=== PATIENT | female | born 1935 | race Caucasian/White ===

== ENCOUNTER → 2016-10-11 | Outpatient (CLI) | payer MEDICARE ==
[~2016-10-11] MED LIST: AMLO5TAB2 PO; AMOX1TAB64 PO; GLYC1DRO EACHEYE; HYDR25TA6 PO; LOSA100T6 PO; POTA20TA14 PO; SILV25CR4 TP
== END | disposition home or self-care (01) ==
LOC: CFH 10:53
PROVIDERS: ATTEND Internal Medicine
DX: Z13.820 Encounter for screening for osteoporosis (principal); M81.0 Age-related osteoporosis without current pathological fracture; M89.9 Disorder of bone, unspecified; N95.1 Menopausal and female climacteric states
CPT/HCPCS: 77080

== ENCOUNTER 2018-04-24 14:07 | Inpatient (IN) | payer MEDICARE ==
[~2018-04-24] VITALS: Ht 167.6 cm; Wt 66.5 kg
[~2018-04-24 14:07] MED LIST changes: +AMLO-150 PO; -AMLO5TAB2 PO; -LOSA100T6 PO; +LOSA100T7 PO; -SILV25CR4 TP; +SILV25CR6 TP
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
[2018-04-24] MEDS ORDERED: SODIUM CHLORIDE FLUSH 10ML SYR IVF ONE (14:30)
[2018-04-24] MEDS ORDERED: HYDROmorphone 2 MG/ML, 1ML IVPush PRN ×2 (14:30→19:30)
[2018-04-24] MEDS ORDERED: ONDANSETRON 2MG/ML, 2ML IVPush ONE (14:30)
[2018-04-24] MEDS ORDERED: ONDANSETRON 2MG/ML, 2ML ONE (14:46)
[2018-04-24] MEDS ORDERED: HYDROmorphone 2 MG/ML, 1ML ONE (14:47)
[2018-04-24 15:03] LABS: BASOPHILS # (AUTO) 0.06 x10^3/uL (0-0.1); BASOPHILS % (AUTO) 1 % (0-1); EOSINOPHILS # (AUTO) 0.05 x10^3/uL (0-0.4); EOSINOPHILS % (AUTO) 1 % (1-7); LYMPHOCYTES # (AUTO) 1.31 x10^3/uL (1-3.4); LYMPHOCYTES % (AUTO) 19 % (22-44); MD NO; MEAN CORPUSCULAR HEMOGLOBIN 33.4 pg (27.0-34.8); MEAN CORPUSCULAR HGB CONC 33.9 g/dL (32.4-35.8); MEAN CORPUSCULAR VOLUME 98.8 fL (80-100); MEAN PLATELET VOLUME 9.5 fL (7.4-10.4); MONOCYTES # (AUTO) 0.48 x10^3/uL (0.2-0.8); MONOCYTES % (AUTO) 7 % (2-9); NEUTROPHILS # (AUTO) 4.94 x10^3/uL (1.8-6.8); NEUTROPHILS % (AUTO) 72 % (42-75); PLATELET COUNT 267 x10^3/uL (130-400); RED BLOOD COUNT 4.09 x10^6/uL (3.82-5.3); RED CELL DISTRIBUTION WIDTH 14.3 % (9.6-15.2)
[2018-04-24 15:08] LABS: ALANINE AMINOTRANSFERASE 23 U/L (12-78); ALBUMIN 3.8 g/dL (3.4-5.0); ANION GAP 11 mmol/L (5-15); CALCIUM 9.2 mg/dL (8.5-10.1); CHLORIDE 107 mmol/L (98-107)
[2018-04-24 15:11] LABS: ALKALINE PHOSPHATASE 87 U/L (45-117); BILIRUBIN,TOTAL 0.6 mg/dL (0.2-1.0); CREATININE 0.88 mg/dL (0.55-1.02); TOTAL PROTEIN 7.2 g/dL (6.4-8.2)
--- NOTE | 2018-04-24 15:22 | NUR ---
URINE SAMPLE OBTAINED AND SENT TO THE LAB.
--- NOTE | 2018-04-24 15:31 | NUR ---
PT TAKEN TO X RAY.
[2018-04-24 15:34] LABS: INTERNATIONAL NORMALIZED RATIO 1.05 (0.93-1.1); PROTHROMBIN TIME 11.1 Seconds (9.6-11.5)
[2018-04-24 15:52] LABS: MICROSCOPIC INDICATED
[2018-04-24] MEDS ORDERED: SERT50TA28 PO (16:06)
[2018-04-24] MEDS ORDERED: ALEN70TA5 PO (16:06)
[2018-04-24] MEDS ORDERED: OMEP-110 PO (16:06)
[2018-04-24] MEDS ORDERED: SIMV20TA3 PO (16:06)
[2018-04-24] MEDS ORDERED: AMLO10TA6 PO (16:06)
--- NOTE | 2018-04-24 16:27 | NUR ---
HOSPITALIST AT BEDSIDE.
[2018-04-24] MEDS ORDERED: PROPYLENE GLYCOL OP PRN (16:30)
[2018-04-24] MEDS ORDERED: SODIUM CHLORIDE FLUSH 10ML SYR IVF PRN (16:30)
[2018-04-24] MEDS ORDERED: GLYCERIN OP PRN (16:30)
[2018-04-24] MEDS ORDERED: [UNRECOGNIZED DRUG - OTHER] OP PRN (16:30)
--- NOTE | 2018-04-24 16:30 | NUR ---
CALLED ANAHI TO GIVEN REPORT, WAS TOLD SHE WILL CALL THE NURSE BACK.
[2018-04-24 16:54] LABS: CULTURE INDICATED? NO
[2018-04-24] MEDS ORDERED: MORPHINE SULFATE 4 MG/ML, 1ML IVPush PRN (17:00)
[2018-04-24] MEDS ORDERED: PANTOPRAZOLE 40 MG IV IVPush ONE (17:00)
--- NOTE | 2018-04-24 17:11 | NUR ---
REPORT GIVEN TO ANAHI WILSON.
--- NOTE | 2018-04-24 17:23 | NUR ---
PT IS RESTING IN BED, TALKING WITH FAMILY, RESPIRATIONS EQUAL AND NON LABORED. NAD. PT IS CONNECTED TO THE MONITOR. CALL LIGHT WITHIN REACH.
--- NOTE | 2018-04-24 17:47 | NUR ---
REPORT GIVEN TO OR
[2018-04-24] MEDS ORDERED: SUCCINYLCHOLINE 20 MG/ML, 10ML ONE (18:30)
[2018-04-24] MEDS ORDERED: LIDOCAINE 4%, 4 ML SYR/CANN TP ONE (18:30)
[2018-04-24] MEDS ORDERED: FENTANYL PF 100 MCG/2ML ONE ×3 (18:30→20:10)
[2018-04-24] MEDS ORDERED: CEFAZOLIN 1,000 MG ONE (18:30)
[2018-04-24] MEDS ORDERED: LIDOCAINE-MPF 2% ,5ML ONE (18:30)
[2018-04-24] MEDS ORDERED: PROPOFOL 10 MG/ML, 20ML ONE (18:30)
[2018-04-24] MEDS ORDERED: EPHEDRINE 50 MG/ML, 1ML ONE (18:30)
[2018-04-24] MEDS ORDERED: TRANEXAMIC ACID 100 MG/ML, 10ML ONE (18:54)
[2018-04-24] MEDS ORDERED: OXYcodone 5 MG/5 ML ORAL.SOL UDC PO PRN (19:30)
[2018-04-24] MEDS ORDERED: ONDANSETRON ODT 8 MG PO PRN (19:30)
[2018-04-24] MEDS ORDERED: ONDANSETRON 2MG/ML, 2ML IV PRN (19:30)
[2018-04-24] MEDS ORDERED: ACETAMINOPHEN 325 MG TABLET PO PRN (19:30)
[2018-04-24] MEDS ORDERED: OXYcodone 5 MG/5 ML ORAL.SOL UDC ONE (20:10)
[2018-04-24] MEDS: FENTANYL PF 100 MCG/2ML IV PRN ×3 (20:11→20:25)
[2018-04-24] MEDS: SIMVASTATIN 20 MG TABLET PO SCH (21:00)
[2018-04-24] MEDS: HYDROmorphone 2 MG/ML, 1ML IV PRN (22:50)
[2018-04-25] MEDS: CEFAZOLIN 1,000 MG in SODIUM CHLORIDE 0.9% 50 ML IV SCH ×2 (01:50→10:36)
[2018-04-25 01:57] VITALS: BP 116/53
[2018-04-25 04:16] VITALS: BP 119/92
[2018-04-25] MEDS: HYDROmorphone 2 MG/ML, 1ML IV PRN ×3 (06:10→18:46)
[2018-04-25] MEDS: SODIUM CHLORIDE 0.9% 1,000 ML IV SCH ×2 (06:15→20:00)
[2018-04-25 07:22] VITALS: BP 119/67
[2018-04-25] MEDS: SERTRALINE 50MG TABLET PO SCH (08:40)
[2018-04-25] MEDS: OXYcodone IR 5MG TABLET PO PRN ×3 (08:40→21:24)
[2018-04-25] MEDS: OMEPRAZOLE 20 MG CAPSULE.DR PO SCH (08:40)
[2018-04-25] MEDS: POTASSIUM CHLORIDE 20 MEQ TAB.ER.PRT PO SCH (08:40)
[2018-04-25] MEDS: LOSARTAN 50MG TABLET PO SCH (08:40)
[2018-04-25] MEDS: AMLODIPINE 10 MG TAB PO SCH (10:04)
[2018-04-25 12:57] VITALS: BP 115/50
[2018-04-25] MEDS: ENOXAPARIN 40 MG/0.4 ML SQ SCH (16:44)
[2018-04-25 17:19] LABS: ANION GAP 9 mmol/L (5-15); CALCIUM 8.2 mg/dL (8.5-10.1); CHLORIDE 106 mmol/L (98-107); CREATININE 0.82 mg/dL (0.55-1.02)
[2018-04-25 17:20] LABS: BASOPHILS # (AUTO) 0.04 x10^3/uL (0-0.1); BASOPHILS % (AUTO) 0 % (0-1); EOSINOPHILS # (AUTO) 0.01 x10^3/uL (0-0.4); EOSINOPHILS % (AUTO) 0 % (1-7); LYMPHOCYTES # (AUTO) 0.94 x10^3/uL (1-3.4); LYMPHOCYTES % (AUTO) 9 % (22-44); MD NO; MEAN CORPUSCULAR HEMOGLOBIN 33.5 pg (27.0-34.8); MEAN CORPUSCULAR HGB CONC 33.9 g/dL (32.4-35.8); MEAN CORPUSCULAR VOLUME 98.7 fL (80-100); MEAN PLATELET VOLUME 9.8 fL (7.4-10.4); MONOCYTES # (AUTO) 1.01 x10^3/uL (0.2-0.8); MONOCYTES % (AUTO) 10 % (2-9); NEUTROPHILS # (AUTO) 8.02 x10^3/uL (1.8-6.8); NEUTROPHILS % (AUTO) 80 % (42-75); PLATELET COUNT 236 x10^3/uL (130-400); RED BLOOD COUNT 3.76 x10^6/uL (3.82-5.3); RED CELL DISTRIBUTION WIDTH 14.5 % (9.6-15.2)
[2018-04-25] MEDS: METHOCARBAMOL 500 MG TABLET PO PRN (17:28)
[2018-04-25 19:50] VITALS: BP 123/63
[2018-04-25] MEDS: SIMVASTATIN 20 MG TABLET PO SCH (21:16)
[2018-04-26 02:00] VITALS: BP 109/51
[2018-04-26] MEDS: OXYcodone IR 5MG TABLET PO PRN ×6 (03:09→23:00)
[2018-04-26 05:42] LABS: BASOPHILS # (AUTO) 0.02 x10^3/uL (0-0.1); BASOPHILS % (AUTO) 0 % (0-1); EOSINOPHILS # (AUTO) 0.01 x10^3/uL (0-0.4); EOSINOPHILS % (AUTO) 0 % (1-7); LYMPHOCYTES % (AUTO) 13 % (22-44); MD NO; MEAN CORPUSCULAR HEMOGLOBIN 32.7 pg (27.0-34.8); MEAN CORPUSCULAR HGB CONC 33.3 g/dL (32.4-35.8); MEAN CORPUSCULAR VOLUME 98.2 fL (80-100); MEAN PLATELET VOLUME 9.7 fL (7.4-10.4); MONOCYTES # (AUTO) 0.99 x10^3/uL (0.2-0.8); MONOCYTES % (AUTO) 14 % (2-9); NEUTROPHILS # (AUTO) 5.18 x10^3/uL (1.8-6.8); NEUTROPHILS % (AUTO) 73 % (42-75); PLATELET COUNT 197 x10^3/uL (130-400); RED BLOOD COUNT 3.36 x10^6/uL (3.82-5.3); RED CELL DISTRIBUTION WIDTH 14.2 % (9.6-15.2)
[2018-04-26 05:56] LABS: CHLORIDE 108 mmol/L (98-107)
[2018-04-26] MEDS: SODIUM CHLORIDE 0.9% 1,000 ML IV SCH (06:00)
[2018-04-26 06:01] LABS: ANION GAP 8 mmol/L (5-15); CALCIUM 8.2 mg/dL (8.5-10.1); CREATININE 0.66 mg/dL (0.55-1.02)
[2018-04-26] MEDS: SERTRALINE 50MG TABLET PO SCH (10:20)
[2018-04-26] MEDS: LOSARTAN 50MG TABLET PO SCH (10:20)
[2018-04-26] MEDS: POTASSIUM CHLORIDE 20 MEQ TAB.ER.PRT PO SCH (10:20)
[2018-04-26] MEDS: OMEPRAZOLE 20 MG CAPSULE.DR PO SCH (10:20)
[2018-04-26] MEDS: AMLODIPINE 10 MG TAB PO SCH (10:20)
[2018-04-26 14:30] VITALS: BP 109/78
[2018-04-26] MEDS: ENOXAPARIN 40 MG/0.4 ML SQ SCH (16:58)
[2018-04-26] MEDS: METHOCARBAMOL 500 MG TABLET PO PRN (19:43)
[2018-04-26 20:00] VITALS: BP 127/50
[2018-04-26] MEDS: SIMVASTATIN 20 MG TABLET PO SCH (23:01)
[2018-04-27 02:00] VITALS: BP 122/51
[2018-04-27] MEDS: OXYcodone IR 5MG TABLET PO PRN ×4 (02:22→14:44)
[2018-04-27 04:56] LABS: BASOPHILS # (AUTO) 0.02 x10^3/uL (0-0.1); BASOPHILS % (AUTO) 0 % (0-1); EOSINOPHILS # (AUTO) 0.02 x10^3/uL (0-0.4); EOSINOPHILS % (AUTO) 0 % (1-7); LYMPHOCYTES # (AUTO) 0.99 x10^3/uL (1-3.4); LYMPHOCYTES % (AUTO) 13 % (22-44); MD NO; MEAN CORPUSCULAR HEMOGLOBIN 32.8 pg (27.0-34.8); MEAN CORPUSCULAR HGB CONC 33.3 g/dL (32.4-35.8); MEAN CORPUSCULAR VOLUME 98.5 fL (80-100); MONOCYTES # (AUTO) 0.82 x10^3/uL (0.2-0.8); MONOCYTES % (AUTO) 11 % (2-9); NEUTROPHILS # (AUTO) 5.58 x10^3/uL (1.8-6.8); NEUTROPHILS % (AUTO) 75 % (42-75); PLATELET COUNT 197 x10^3/uL (130-400); RED BLOOD COUNT 3.42 x10^6/uL (3.82-5.3); RED CELL DISTRIBUTION WIDTH 14.1 % (9.6-15.2)
[2018-04-27 05:04] LABS: ANION GAP 7 mmol/L (5-15); CALCIUM 8.1 mg/dL (8.5-10.1); CHLORIDE 104 mmol/L (98-107); CREATININE 0.56 mg/dL (0.55-1.02)
[2018-04-27] MEDS: SERTRALINE 50MG TABLET PO SCH (07:31)
[2018-04-27] MEDS: LOSARTAN 50MG TABLET PO SCH (07:31)
[2018-04-27] MEDS: OMEPRAZOLE 20 MG CAPSULE.DR PO SCH (07:31)
[2018-04-27] MEDS: POTASSIUM CHLORIDE 20 MEQ TAB.ER.PRT PO SCH (07:31)
[2018-04-27 07:32] VITALS: BP 122/52
[2018-04-27] MEDS: METHOCARBAMOL 500 MG TABLET PO PRN ×2 (07:51→16:30)
[2018-04-27] MEDS: AMLODIPINE 10 MG TAB PO SCH (07:51)
[2018-04-27] MEDS ORDERED: TAMSULOSIN 0.4 MG CAP.ER.24H PO SCH (11:00)
[2018-04-27] MEDS ORDERED: TAMS-11 PO (14:31)
[2018-04-27] MEDS ORDERED: OXYC5TAB3 PO (14:31)
[2018-04-27] MEDS ORDERED: ENOX40SY4 SQ (14:31)
[2018-04-27] MEDS ORDERED: METH500T7 PO (14:31)
[2018-04-27 14:41] VITALS: BP 114/56
[2018-04-27] MEDS: ENOXAPARIN 40 MG/0.4 ML SQ SCH (15:16)
== END 2018-04-27 16:30 | DRG 469 ==
LOC: ED 14:19 → EDIP 16:10 → 4NOR 21:26
PROVIDERS: ADMIT Hospitalist; ATTEND Hospitalist
PROC: 0T9B70Z Drainage of Bladder with Drainage Device, Via Natural or Artificial Opening (ICD-10-PCS; 2018-04-24)
PROC: 0SRR0JZ Replacement of Right Hip Joint, Femoral Surface with Synthetic Substitute, Open Approach (ICD-10-PCS; principal; 2018-04-25)
DX: S72.011A Unspecified intracapsular fracture of right femur, initial encounter for closed fracture (principal); R53.2 Functional quadriplegia; W01.0XXA Fall on same level from slipping, tripping and stumbling without subsequent striking against object, initial encounter; I11.0 Hypertensive heart disease with heart failure; I50.9 Heart failure, unspecified; K21.9 Gastro-esophageal reflux disease without esophagitis; M19.90 Unspecified osteoarthritis, unspecified site; M81.0 Age-related osteoporosis without current pathological fracture; Y93.89 Activity, other specified; Y92.89 Other specified places as the place of occurrence of the external cause; Y99.8 Other external cause status; Z88.2 Allergy status to sulfonamides; Z88.6 Allergy status to analgesic agent; Z98.891 History of uterine scar from previous surgery; Z90.49 Acquired absence of other specified parts of digestive tract
CPT/HCPCS: 36415; 71045; 72170; 80048; 80053; 81001; 85025; 85610; 85730; 88305; 96374; 96375; 99285; G0378; J0690; J1170; J1650; J2405; J2704; J3010; J3490; C1776; J0330; J7030

== ENCOUNTER 2020-02-17 15:38 | Observation (INO) | payer MEDICARE ==
[~2020-02-17] VITALS: Ht 167.6 cm; Wt 70.1 kg
[~2020-02-17 15:38] MED LIST changes: +ALEN70TA6 PO; +AMLO10TA8 PO; +ENOX40SY4 SQ; +LOSA100T14 PO; -LOSA100T7 PO; +METH500T7 PO; +OMEP-110 PO; +OXYC5TAB3 PO; +SERT50TA28 PO; +SILV25CR30 TP; -SILV25CR6 TP; +SIMV20TA19 PO; +TAMS-11 PO
--- NOTE | 2020-02-17 15:57 | NUR ---
Pt SKYE Almagure from [facility] for worsening SOB and lethargy X 1 week.
[2020-02-17] MEDS ORDERED: LORazepam 0.5MG TABLET PO ONE (16:30)
[2020-02-17] MEDS ORDERED: LORazepam 0.5MG TABLET ONE (16:42)
--- NOTE | 2020-02-17 16:46 | NUR ---
[employer] AS[employer]BLER: BRODY WHITLOCK, [phone]. SPOKE WITH HIM ABOUT THE VISITING POLICY. HE STATED THAT HE WOULD WAIT IN THE LOBBY AND ASKED TO BE UPDATED.
--- NOTE | 2020-02-17 16:50 | NUR ---
Pt medicated for anxiety, lab at bedside. Hypertensive, ERP aware.
[2020-02-17 17:11] LABS: BASOPHILS % (AUTO) 1 % (0-1); EOSINOPHILS % (AUTO) 0 % (1-7); LYMPHOCYTES % (AUTO) 16 % (22-44); MEAN CORPUSCULAR HGB CONC 33.8 g/dL (32.4-35.8); MONOCYTES % (AUTO) 8 % (2-9); NEUTROPHILS % (AUTO) 75 % (42-75); PLATELET COUNT 310 x10^3/uL (130-400); RED BLOOD COUNT 4.49 x10^6/uL (3.82-5.3); RED CELL DISTRIBUTION WIDTH 13.1 % (9.6-15.2)
[2020-02-17 17:15] LABS: MD NO
--- NOTE | 2020-02-17 17:19 | NUR ---
Pt medicated for HTN. Son Ashu called, updated per request.
[2020-02-17 17:20] LABS: ALBUMIN 4.1 g/dL (3.4-5.0); ANION GAP 15 mmol/L (5-15); CALCIUM 9.6 mg/dL (8.5-10.1); CHLORIDE 95 mmol/L (98-107)
[2020-02-17 17:26] LABS: ALANINE AMINOTRANSFERASE 19 U/L (12-78); ALKALINE PHOSPHATASE 124 U/L (45-117); BILIRUBIN,TOTAL 1.4 mg/dL (0.2-1.0); CREATININE 1.18 mg/dL (0.55-1.02); TOTAL PROTEIN 7.8 g/dL (6.4-8.2); TROPONIN I 0.027 ng/mL (0.000-0.045)
[2020-02-17] MEDS ORDERED: SODIUM CHLORIDE 0.9%, 500ML IVBOLUS ONE ×2 (17:30→20:30)
[2020-02-17] MEDS ORDERED: SODIUM CHLORIDE 0.9% 1,000 ML IV ONE (17:30)
--- NOTE | 2020-02-17 18:07 | NUR ---
Pt medicated again for continued HTN. Pt denies CP, states that SOB has resoved. No longer feeling anxious. t appears relaxed and in no distress at this time. Bolus infusing. VS updated.
--- NOTE | 2020-02-17 19:06 | NUR ---
report received from Bill WILSON
--- NOTE | 2020-02-17 19:56 | NUR ---
REPORT GIVEN TO KASIE WILSON
[2020-02-17] MEDS ORDERED: LABETALOL 5MG/ML, 20ML IVPush PRN (20:30)
[2020-02-17] MEDS ORDERED: PROMETHAZINE 25 MG/ML, 1ML IM PRN (20:30)
[2020-02-17] MEDS ORDERED: ACETAMINOPHEN 325 MG TABLET PO PRN (20:30)
[2020-02-17] MEDS ORDERED: MELATONIN 5 MG TABLET PO PRN (20:30)
[2020-02-17] MEDS ORDERED: SODIUM CHLORIDE 0.9% 1,000 ML IV SCH (20:30)
[2020-02-17 21:00] VITALS: BP 124/74
[2020-02-17 21:50] LABS: MICROSCOPIC INDICATED
[2020-02-17] MEDS: HEPARIN 5,000 UNITS/ML, 1ML SQ SCH (22:00)
[2020-02-17] MEDS: AMLODIPINE 5 MG TABLET PO SCH (22:01)
[2020-02-17 23:49] LABS: ANION GAP 11 mmol/L (5-15); CALCIUM 8.5 mg/dL (8.5-10.1); CHLORIDE 99 mmol/L (98-107); CREATININE 0.94 mg/dL (0.55-1.02)
[2020-02-18 00:53] VITALS: BP 107/48
[2020-02-18 04:57] LABS: BASOPHILS % (AUTO) 1 % (0-1); EOSINOPHILS % (AUTO) 3 % (1-7); LYMPHOCYTES % (AUTO) 32 % (22-44); MEAN CORPUSCULAR HEMOGLOBIN 32.4 pg (27.0-34.8); MEAN CORPUSCULAR HGB CONC 33.7 g/dL (32.4-35.8); MEAN PLATELET VOLUME 9.2 fL (7.4-10.4); MONOCYTES % (AUTO) 11 % (2-9); NEUTROPHILS % (AUTO) 53 % (42-75); PLATELET COUNT 249 x10^3/uL (130-400); RED BLOOD COUNT 3.92 x10^6/uL (3.82-5.3); RED CELL DISTRIBUTION WIDTH 13.2 % (9.6-15.2)
[2020-02-18] MEDS: HEPARIN 5,000 UNITS/ML, 1ML SQ SCH ×2 (05:04→13:29)
[2020-02-18 05:10] LABS: ANION GAP 9 mmol/L (5-15); CALCIUM 8.8 mg/dL (8.5-10.1); CHLORIDE 100 mmol/L (98-107)
[2020-02-18 05:11] LABS: CREATININE 0.97 mg/dL (0.55-1.02)
[2020-02-18 05:14] LABS: MD NO
[2020-02-18 07:35] VITALS: BP 130/58
[2020-02-18] MEDS ORDERED: POTASSIUM CHLORIDE 20 MEQ TAB.ER.PRT PO SCH (08:00)
[2020-02-18] MEDS: AMLODIPINE 5 MG TABLET PO SCH (08:52)
[2020-02-18] MEDS ORDERED: OMEPRAZOLE 20 MG CAPSULE.DR PO SCH (09:00)
[2020-02-18 13:44] VITALS: BP 113/66
[2020-02-18 14:11] VITALS: BP 114/69
[2020-02-18 14:12] VITALS: BP 133/66
[2020-02-18 14:17] VITALS: BP 133/72
== END 2020-02-18 17:50 | disposition home or self-care (01) ==
LOC: ED 17:37 → INTOOBSV 18:11 → EDIP 18:11 → 4WST 20:48
PROVIDERS: ADMIT Family Medicine; ATTEND Hospitalist
DX: E87.1 Hypo-osmolality and hyponatremia (principal); E86.1 Hypovolemia; E87.6 Hypokalemia; E86.0 Dehydration; R06.00 Dyspnea, unspecified; I10 Essential (primary) hypertension; F41.1 Generalized anxiety disorder; E78.5 Hyperlipidemia, unspecified; K21.9 Gastro-esophageal reflux disease without esophagitis; Z79.899 Other long term (current) drug therapy
CPT/HCPCS: 36415; 70551; 71045; 80048; 80053; 81001; 83605; 83735; 83880; 84100; 84443; 84484; 85025; 87086; 93005; 96360; 96361; 96372; 97161; 99285; G0378; J1644; J7030; J7040

== ENCOUNTER 2020-12-05 16:26 | Inpatient (IN) | payer MEDICARE ==
[~2020-12-05] VITALS: Ht 167.6 cm; Wt 64.9 kg
[~2020-12-05 16:26] MED LIST changes: -ALEN70TA6 PO; +ALEN70TA77 PO; +AMLO-211 PO; -AMLO10TA8 PO; +ASPI-963 PO; +ATOR40TA78 PO; +CLOP75TA52 PO; +LOSA25TA12 PO; +METH-639 PO; -METH500T7 PO; -OXYC5TAB3 PO; +OXYC5TAB98 PO
--- NOTE | 2020-12-05 16:26 | NUR ---
SKYE WHITAKER FD FROM C/O INCR WEAKNESS, HTN & NAUSEA TODAY; BG 162 WITH NAUSEA THAT RESOLVED AFTER IV ZOFRAN SHOE MAKER PER EMS; PT AOX3 (BASELINE MILD DEMENTIA), RESPONDS APPROP TO STAFF, NAD, DAUGHTER AT , COMFORT MEASURES PROVIDED, CALL LIGHT WITHIN REACH, MONITORS IN PLACE.
--- NOTE | 2020-12-05 16:46 | NUR ---
DAUGHTER ELVIS CELL [phone] SON CHINYERE CELL [phone]
--- NOTE | 2020-12-05 17:05 | NUR ---
PT UPRIGHT ON GURNEY AWAKE & COMFORTABLE AFTER AMBULATING TO BR WITH DAUGHTER ASSIST, +BM & VOID- UA SENT TO LAB, PT RESPONDS APPROP TO STAFF AT BASELINE ORIENTATION, NAD, DAUGHTER AT BS, COMFORT MEASURES PROVIDED, CALL LIGHT WITHIN REACH.
[2020-12-05] MEDS ORDERED: hydrALAzine 20 MG/ML, 1ML IV ONE (17:30)
[2020-12-05] MEDS ORDERED: hydrALAzine 20 MG/ML, 1ML ONE (17:34)
[2020-12-05 17:36] LABS: MICROSCOPIC AUTO
--- NOTE | 2020-12-05 18:03 | NUR ---
PT LAYING ON GURNEY AWAKE & COMFORTABLE, RESPONDS APPROP TO STAFF AT BASELINE ORIENTATION, NAD, DAUGHTER AT BS, NO NEEDS AT THIS TIME, CALL LIGHT WITHIN REACH.
[2020-12-05 18:06] LABS: BASOPHILS % (AUTO) 1 % (0-1); EOSINOPHILS % (AUTO) 0 % (1-7); LYMPHOCYTES % (AUTO) 23 % (22-44); MEAN CORPUSCULAR HEMOGLOBIN 31.8 pg (27.0-34.8); MEAN CORPUSCULAR HGB CONC 34.1 g/dL (32.4-35.8); MEAN PLATELET VOLUME 9.3 fL (7.4-10.4); MONOCYTES % (AUTO) 9 % (2-9); NEUTROPHILS % (AUTO) 67 % (42-75); PLATELET COUNT 220 x10^3/uL (130-400); RED BLOOD COUNT 3.83 x10^6/uL (3.82-5.3); RED CELL DISTRIBUTION WIDTH 13.8 % (9.6-15.2)
[2020-12-05 18:14] LABS: ALANINE AMINOTRANSFERASE 17 U/L (12-78); ALBUMIN 3.1 g/dL (3.4-5.0); ANION GAP 13 mmol/L (5-15); CALCIUM 8.2 mg/dL (8.5-10.1); CHLORIDE 101 mmol/L (98-107); CREATININE 2.08 mg/dL (0.55-1.02)
[2020-12-05 18:18] LABS: ALKALINE PHOSPHATASE 124 U/L (45-117); BILIRUBIN,TOTAL 0.8 mg/dL (0.2-1.0); TOTAL PROTEIN 6.5 g/dL (6.4-8.2); TROPONIN I < 0.015 ng/mL (0.000-0.045)
--- NOTE | 2020-12-05 18:30 | NUR ---
PT TO CT
--- NOTE | 2020-12-05 18:54 | NUR ---
REPORT GIVEN TO TONE WILSON
--- NOTE | 2020-12-05 18:54 | NUR ---
Report from Phylicia WILSON
[2020-12-05 18:59] LABS: ECHINOCYTES 1+; OVALOCYTES 1+
[2020-12-05 19:02] LABS: <PLATELET ESTIMATE> ADEQUATE; <PLT MORPHOLOGY> NORMAL PLT MORPH
[2020-12-05] MEDS ORDERED: CEFTRIAXONE 1,000 MG in DEXTROSE 5% 50 ML IVPB ONE (20:00)
[2020-12-05] MEDS ORDERED: POTASSIUM CHLORIDE 20 MEQ TAB.ER.PRT PO ONE (20:00)
[2020-12-05] MEDS ORDERED: ACETAMINOPHEN 325 MG TABLET PO PRN (20:30)
[2020-12-05] MEDS ORDERED: LABETALOL 5MG/ML, 20ML IVPush PRN (20:30)
[2020-12-05] MEDS ORDERED: POLYETHYLENE GLYCOL 17 GM PACKET PO PRN (20:30)
[2020-12-05] MEDS ORDERED: GUAIFENESIN/DM 200-20MG, 10ML UDC PO PRN (20:30)
[2020-12-05] MEDS ORDERED: MELATONIN 5 MG TABLET PO PRN (20:30)
[2020-12-05] MEDS ORDERED: POTASSIUM CHLORIDE 20 MEQ TAB.ER.PRT ONE (20:47)
[2020-12-05] MEDS: SODIUM CHLORIDE 0.9% 1,000 ML IV SCH (20:54)
--- NOTE | 2020-12-05 20:58 | NUR ---
blood cultures drawn prior to antibiotic admin
--- NOTE | 2020-12-05 21:03 | NUR ---
Report to Jessica WILSON
[2020-12-05] MEDS ORDERED: MAGNESIUM SULFATE 2 GM in DEXTROSE 5% 100 ML IV ONE (21:24)
[2020-12-05 21:27] VITALS: BP 187/76
[2020-12-05] MEDS ORDERED: MAGNESIUM SULFATE PMX 2GM/50ML 0 ML ONE (22:37)
[2020-12-05] MEDS: ENOXAPARIN 30 MG/0.3 ML SQ SCH (23:07)
[2020-12-05] MEDS: POTASSIUM CHLORIDE 40 MEQ in LACTATED RINGERS 1,000 ML IV SCH (23:07)
[2020-12-06] MEDS: SODIUM CHLORIDE 0.9% 1,000 ML IV SCH ×2 (01:00→06:00)
[2020-12-06 03:57] VITALS: BP_SYST 131; BP_SYST 134; BP_DIAS 62; BP_DIAS 73
[2020-12-06 04:39] LABS: BASOPHILS % (AUTO) 1 % (0-1); EOSINOPHILS % (AUTO) 1 % (1-7); LYMPHOCYTES % (AUTO) 31 % (22-44); MEAN CORPUSCULAR HEMOGLOBIN 32.1 pg (27.0-34.8); MEAN PLATELET VOLUME 9.2 fL (7.4-10.4); MONOCYTES % (AUTO) 12 % (2-9); NEUTROPHILS % (AUTO) 54 % (42-75); PLATELET COUNT 197 x10^3/uL (130-400); RED BLOOD COUNT 3.61 x10^6/uL (3.82-5.3); RED CELL DISTRIBUTION WIDTH 14.3 % (9.6-15.2)
[2020-12-06 04:47] LABS: ANION GAP 7 mmol/L (5-15); CALCIUM 7.8 mg/dL (8.5-10.1); CHLORIDE 106 mmol/L (98-107)
[2020-12-06] MEDS: POTASSIUM CHLORIDE 40 MEQ in LACTATED RINGERS 1,000 ML IV SCH (07:44)
[2020-12-06 08:27] VITALS: BP 147/72
[2020-12-06 13:29] VITALS: BP 155/63
[2020-12-06] MEDS ORDERED: LABETALOL 5MG/ML, 20ML IVPush PRN (16:00)
[2020-12-06] MEDS: ONDANSETRON 2MG/ML, 2ML IVPush PRN (17:42)
[2020-12-06 19:31] VITALS: BP 156/69
[2020-12-06] MEDS: AMLODIPINE 5 MG TABLET PO SCH (20:14)
[2020-12-06] MEDS: ENOXAPARIN 30 MG/0.3 ML SQ SCH (20:14)
[2020-12-06] MEDS: ATORVASTATIN 40 MG TABLET PO SCH (20:14)
[2020-12-06] MEDS: CEFTRIAXONE 2 GM in DEXTROSE 5% 50 ML IVPB SCH (20:14)
[2020-12-06] MEDS: MAGNESIUM OXIDE 400 MG TABLET PO SCH (20:14)
[2020-12-07 01:30] VITALS: BP_SYST 122; BP_SYST 143; BP_DIAS 62; BP_DIAS 66
[2020-12-07 01:31] VITALS: BP 152/73
[2020-12-07 05:32] LABS: BASOPHILS % (AUTO) 1 % (0-1); EOSINOPHILS % (AUTO) 2 % (1-7); LYMPHOCYTES % (AUTO) 28 % (22-44); MEAN CORPUSCULAR HEMOGLOBIN 32.5 pg (27.0-34.8); MEAN PLATELET VOLUME 9.8 fL (7.4-10.4); MONOCYTES % (AUTO) 10 % (2-9); NEUTROPHILS % (AUTO) 59 % (42-75); PLATELET COUNT 201 x10^3/uL (130-400); RED BLOOD COUNT 3.55 x10^6/uL (3.82-5.3); RED CELL DISTRIBUTION WIDTH 14.1 % (9.6-15.2)
[2020-12-07 05:48] LABS: ALANINE AMINOTRANSFERASE 13 U/L (12-78); ALBUMIN 2.8 g/dL (3.4-5.0); ANION GAP 6 mmol/L (5-15); CALCIUM 8.5 mg/dL (8.5-10.1); CHLORIDE 109 mmol/L (98-107)
[2020-12-07 05:51] LABS: ALKALINE PHOSPHATASE 107 U/L (45-117); BILIRUBIN,TOTAL 0.5 mg/dL (0.2-1.0); CREATININE 1.16 mg/dL (0.55-1.02); TOTAL PROTEIN 5.9 g/dL (6.4-8.2)
[2020-12-07 07:04] VITALS: BP 137/74
[2020-12-07] MEDS: CLOPIDOGREL 75 MG TABLET PO SCH (08:42)
[2020-12-07] MEDS: MAGNESIUM OXIDE 400 MG TABLET PO SCH ×2 (08:42→19:58)
[2020-12-07] MEDS: AMLODIPINE 5 MG TABLET PO SCH ×2 (08:42→19:58)
[2020-12-07] MEDS: ASPIRIN 81 MG TABLET EC PO SCH (08:42)
[2020-12-07] MEDS: SERTRALINE 50MG TABLET PO SCH (08:43)
[2020-12-07 12:12] VITALS: BP 126/68
[2020-12-07 18:51] VITALS: BP 143/64
[2020-12-07 19:40] VITALS: BP_SYST 150; BP_SYST 151; BP_SYST 152; BP_DIAS 70; BP_DIAS 71
[2020-12-07] MEDS: ENOXAPARIN 30 MG/0.3 ML SQ SCH (19:58)
[2020-12-07] MEDS: ATORVASTATIN 40 MG TABLET PO SCH (19:58)
[2020-12-07] MEDS: CEFTRIAXONE 2 GM in DEXTROSE 5% 50 ML IVPB SCH (19:58)
[2020-12-08] VITALS (8 sets, daily range): BP systolic 114–152; BP diastolic 67–86
[2020-12-08 04:58] LABS: BASOPHILS % (AUTO) 1 % (0-1); EOSINOPHILS % (AUTO) 2 % (1-7); LYMPHOCYTES % (AUTO) 24 % (22-44); MEAN CORPUSCULAR HEMOGLOBIN 32.1 pg (27.0-34.8); MEAN CORPUSCULAR HGB CONC 34.1 g/dL (32.4-35.8); MEAN PLATELET VOLUME 9.4 fL (7.4-10.4); MONOCYTES % (AUTO) 10 % (2-9); NEUTROPHILS % (AUTO) 63 % (42-75); PLATELET COUNT 145 x10^3/uL (130-400); RED BLOOD COUNT 3.69 x10^6/uL (3.82-5.3); RED CELL DISTRIBUTION WIDTH 14.3 % (9.6-15.2)
[2020-12-08 05:11] LABS: CHLORIDE 109 mmol/L (98-107)
[2020-12-08 05:20] LABS: ANION GAP 11 mmol/L (5-15); CALCIUM 8.4 mg/dL (8.5-10.1); CREATININE 0.77 mg/dL (0.55-1.02)
[2020-12-08 05:56] LABS: OVALOCYTES 1+
[2020-12-08 05:57] LABS: <PLATELET ESTIMATE> ADEQUATE; <PLT MORPHOLOGY> NORMAL PLT MORPH; ACANTHOCYTES 1+; ECHINOCYTES 1+
[2020-12-08] MEDS: ASPIRIN 81 MG TABLET EC PO SCH (08:37)
[2020-12-08] MEDS: AMLODIPINE 5 MG TABLET PO SCH (08:37)
[2020-12-08] MEDS: SERTRALINE 50MG TABLET PO SCH (08:37)
[2020-12-08] MEDS: CLOPIDOGREL 75 MG TABLET PO SCH (08:37)
[2020-12-08] MEDS: MAGNESIUM OXIDE 400 MG TABLET PO SCH (08:38)
[2020-12-08] MEDS: ONDANSETRON 2MG/ML, 2ML IVPush PRN (08:47)
[2020-12-08] MEDS ORDERED: MAGN400T50 PO (15:31)
[2020-12-08] MEDS ORDERED: AMLO-150 PO (15:31)
== END 2020-12-08 17:03 | disposition home health service (06) | DRG 689 ==
LOC: ED 16:56 → EDIP 20:00 → 4WST 21:16
PROVIDERS: ADMIT Internal Medicine; ATTEND Internal Medicine
DX: N30.00 Acute cystitis without hematuria (principal); N17.0 Acute kidney failure with tubular necrosis; I16.0 Hypertensive urgency; D63.8 Anemia in other chronic diseases classified elsewhere; E83.42 Hypomagnesemia; E86.0 Dehydration; E87.6 Hypokalemia; E88.09 Other disorders of plasma-protein metabolism, not elsewhere classified; F19.10 Other psychoactive substance abuse, uncomplicated; F41.1 Generalized anxiety disorder; I10 Essential (primary) hypertension; I65.23 Occlusion and stenosis of bilateral carotid arteries; J44.9 Chronic obstructive pulmonary disease, unspecified; Z66 Do not resuscitate; Z86.73 Personal history of transient ischemic attack (TIA), and cerebral infarction without residual deficits; Z79.899 Other long term (current) drug therapy
CPT/HCPCS: 36415; 70450; 71045; 76700; 80048; 80053; 81001; 83605; 83735; 84443; 84484; 85025; 87040; 87086; 93005; 96374; 96375; G0378; J0696; J1650; J2405; J3475; J3480; J0360; J7030; J7120